=== PATIENT | female | born 1985 | race Caucasian/White ===

== ENCOUNTER 2018-12-02 01:16 | Observation (INO) | payer OTHER ==
[~2018-12-02] VITALS: Ht 165.1 cm; Wt 98.2 kg
[~2018-12-02 01:16] MED LIST: AMIT25TA PO; ESCI10TA PO; NABU750T PO; OXYC-302 PO; SERT100T32 PO
[2018-12-02 01:43] VITALS: BP 130/87
[2018-12-02] MEDS ORDERED: ONDANSETRON 2MG/ML, 2ML ONE (02:12)
[2018-12-02] MEDS ORDERED: PREN1TAB60 PO (02:29)
[2018-12-02] MEDS ORDERED: LACTATED RINGERS 1,000 ML IVBOLUS ONE (02:30)
[2018-12-02] MEDS ORDERED: PROMETHAZINE 25 MG SUPP PR ONE (02:30)
[2018-12-02] MEDS ORDERED: GABA100C PO (02:30)
[2018-12-02] MEDS ORDERED: ONDANSETRON 2MG/ML, 2ML IVPush PRN (02:30)
[2018-12-02] MEDS ORDERED: QUET400T4 PO (02:32)
[2018-12-02] MEDS ORDERED: HYDR1TAB13 PO (02:33)
[2018-12-02 04:47] LABS: MICROSCOPIC INDICATED
== END 2018-12-02 06:05 | disposition home or self-care (01) ==
LOC: LDOP 01:16 → LDIP 03:10
PROVIDERS: ADMIT Obstetrics & Gynecology Female Pelvic Medicine and Reconstructive Surgery; ATTEND Obstetrics & Gynecology Female Pelvic Medicine and Reconstructive Surgery
DX: O21.0 Mild hyperemesis gravidarum (principal); O99.342 Other mental disorders complicating pregnancy, second trimester; F32.9 Major depressive disorder, single episode, unspecified; Z3A.27 27 weeks gestation of pregnancy
CPT/HCPCS: 59025; 81001; 87086; 96374; 99201; G0378; J2405; J7120; 87077; 96360; 96361; G0463